=== PATIENT | female | born 1965 ===

== ENCOUNTER 2017-11-11 06:55 | Day surgery (SDC) | payer OTHER | END 2017-11-11 14:00 | disposition home or self-care (01) | LOC: AMB-ENDOS 06:55 | DX: K57.32 Diverticulitis of large intestine without perforation or abscess without bleeding (principal); K64.1 Second degree hemorrhoids; K57.30 Diverticulosis of large intestine without perforation or abscess without bleeding ==

== ENCOUNTER 2017-12-14 12:15 | Inpatient (IN) | payer OTHER ==
[~2017-12-14] VITALS: Ht 175.3 cm; Wt 108.9 kg
[2017-12-14] MEDS ORDERED: AVAPRO300 MG PO (14:49)
[2017-12-14] MEDS ORDERED: NEXIUM 24HR20 M1 PO (14:50)
[2017-12-14] MEDS ORDERED: METROPOLOL PO (14:50)
[2017-12-14] MEDS ORDERED: CLARITIN10 M2 PO (14:51)
== END 2017-12-23 13:22 | disposition home or self-care (01) | DRG 331 ==
LOC: O/R 12-20 05:30 → EDSEX 12-20 05:30 → SURH 12-20 07:00
PROVIDERS: Colon & Rectal Surgery
PROC: 0DJD8ZZ Inspection of Lower Intestinal Tract, Via Natural or Artificial Opening Endoscopic (ICD-10-PCS; 2017-12-20)
PROC: 4A033R1 Measurement of Arterial Saturation, Peripheral, Percutaneous Approach (ICD-10-PCS; 2017-12-20)
PROC: 3E0F7GC Introduction of Other Therapeutic Substance into Respiratory Tract, Via Natural or Artificial Opening (ICD-10-PCS; 2017-12-20)
PROC: 4A12X4Z Monitoring of Cardiac Electrical Activity, External Approach (ICD-10-PCS; 2017-12-20)
PROC: 0DTE4ZZ Resection of Large Intestine, Percutaneous Endoscopic Approach (ICD-10-PCS; principal; 2017-12-20 07:00)
DX: K57.32 Diverticulitis of large intestine without perforation or abscess without bleeding (principal); I11.9 Hypertensive heart disease without heart failure; G47.33 Obstructive sleep apnea (adult) (pediatric); E66.01 Morbid (severe) obesity due to excess calories; J45.20 Mild intermittent asthma, uncomplicated; Z53.1 Procedure and treatment not carried out because of patient's decision for reasons of belief and group pressure; R73.01 Impaired fasting glucose; J30.89 Other allergic rhinitis

== ENCOUNTER 2019-02-02 06:28 | Day surgery (SDC) | payer OTHER ==
[~2019-02-02 06:28] MED LIST: AVAPRO300 MG PO; CLARITIN10 M2 PO; METROPOLOL PO; NEXIUM 24HR20 M1 PO
== END 2019-02-02 12:45 | disposition home or self-care (01) ==
LOC: AMB-ENDOS 06:28
DX: K57.32 Diverticulitis of large intestine without perforation or abscess without bleeding (principal); K92.1 Melena; K64.1 Second degree hemorrhoids

== ENCOUNTER 2019-10-08 08:58 | Outpatient (CLI) | payer OTHER | END 2019-10-08 09:07 | disposition home or self-care (01) | LOC: NUCLEAR 08:58 | DX: R00.2 Palpitations (principal) ==